=== PATIENT | female | born 2000 | race Caucasian/White ===

== ENCOUNTER 2020-05-30 19:36 | Emergency (ER) | payer BC ==
[~2020-05-30] VITALS: Ht 165.1 cm; Wt 69.0 kg
[2020-05-30] MEDS ORDERED: SODIUM CHLORIDE 0.9% 1,000ML IVBOLUS ONE (20:00)
[2020-05-30] MEDS ORDERED: SODIUM CHLORIDE FLUSH 10ML SYR IVF ONE (20:00)
[2020-05-30 20:15] LABS: BASOPHILS % (AUTO) 0 % (0-1); EOSINOPHILS % (AUTO) 0 % (1-7); LYMPHOCYTES % (AUTO) 17 % (22-44); MEAN CORPUSCULAR HEMOGLOBIN 30.9 pg (27.0-34.8); MEAN PLATELET VOLUME 7.9 fL (7.4-10.4); MONOCYTES % (AUTO) 6 % (2-9); NEUTROPHILS % (AUTO) 76 % (42-75); PLATELET COUNT 248 x10^3/uL (130-400); RED BLOOD COUNT 4.61 x10^6/uL (3.82-5.3); RED CELL DISTRIBUTION WIDTH 12.8 % (9.6-15.2)
[2020-05-30 20:23] LABS: ANION GAP 5 mmol/L (5-15); CALCIUM 8.6 mg/dL (8.5-10.1); CHLORIDE 106 mmol/L (98-107); CREATININE 0.81 mg/dL (0.55-1.02)
[2020-05-30 20:27] LABS: MD NO
[2020-05-30] MEDS ORDERED: PLEASE ENTER ALLERGIES MC SCH (20:30)
--- NOTE | 2020-05-30 20:44 | NUR ---
manager gas: pt from lobby to room 33
--- NOTE | 2020-05-30 20:58 | NUR ---
Pt reports she has had fever of 103 all day today, chest pain, shortness of breath. 2nd COVID shot was yesterday. Sats 95% RA, hooked up to monitor, orthostatic vitals done. Only reports medical hx of tonsilectomy and wisdom teeth removal.
[2020-05-30 21:48] VITALS: BP 100/58
--- NOTE | 2020-05-30 21:49 | NUR ---
Pt agrees with and understands discharge plan and instructions. NS infusion complete. IV removed, catheter intact, hemostasis achieved.
== END 2020-05-30 22:14 | disposition home or self-care (01) ==
LOC: ED 20:06
DX: T88.1XXA Other complications following immunization, not elsewhere classified, initial encounter (principal); B34.9 Viral infection, unspecified; E87.6 Hypokalemia; R00.0 Tachycardia, unspecified
CPT/HCPCS: 36415; 71046; 80048; 84703; 85025; 93005; 96360; 96361; 99285; J7030